=== PATIENT | female | born 2000 | race Caucasian/White ===

== ENCOUNTER 2019-06-08 13:14 | Emergency (ER) | payer OTHER ==
[~2019-06-08] VITALS: Ht 162.6 cm; Wt 93.4 kg
[2019-06-08] MEDS ORDERED: PRENATAL MULTI1 EAC3 (13:21)
[2019-06-08] MEDS ORDERED: M-NATAL PLUS T1 EACH (13:22)
== END 2019-06-08 18:44 | disposition home or self-care (01) ==
LOC: ER 13:14
DX: O26.892 Other specified pregnancy related conditions, second trimester (principal); R10.31 Right lower quadrant pain

== ENCOUNTER 2019-11-02 06:37 | Inpatient (IN) | payer OTHER ==
[~2019-11-02] VITALS: Ht 162.6 cm; Wt 109.8 kg
[~2019-11-02 06:37] MED LIST: M-NATAL PLUS T1 EACH; PRENATAL MULTI1 EAC3
[2019-11-02] MEDS ORDERED: PRENATAL TABLE1 EACH PO (12:02)
== END 2019-11-06 18:43 | disposition home or self-care (01) | DRG 788 ==
LOC: LDR 06:37 → O/R 20:29 → OB/GYN 11-03 17:14
PROVIDERS: ADMIT Obstetrics & Gynecology
PROC: 4A1HXFZ Monitoring of Products of Conception, Cardiac Rhythm, External Approach (ICD-10-PCS; 2019-11-02)
PROC: 3E033VJ Introduction of Other Hormone into Peripheral Vein, Percutaneous Approach (ICD-10-PCS; 2019-11-02)
PROC: 10D00Z1 Extraction of Products of Conception, Low, Open Approach (ICD-10-PCS; principal; 2019-11-02 19:00)
DX: O13.4 Gestational [pregnancy-induced] hypertension without significant proteinuria, complicating childbirth (principal); O61.0 Failed medical induction of labor; O62.1 Secondary uterine inertia; Z3A.39 39 weeks gestation of pregnancy; Z37.0 Single live birth

== ENCOUNTER 2021-05-14 22:39 | Inpatient (IN) | payer OTHER ==
[~2021-05-14] VITALS: Ht 162.6 cm; Wt 113.4 kg
[~2021-05-14 22:39] MED LIST changes: +PRENATAL TABLE1 EACH PO
== END 2021-05-19 13:41 | disposition home or self-care (01) | DRG 833 ==
LOC: OBS/DEL 22:39 → LDR 05-15 08:19
PROVIDERS: ADMIT Obstetrics & Gynecology; ATTEND Obstetrics & Gynecology
PROC: 4A1HXFZ Monitoring of Products of Conception, Cardiac Rhythm, External Approach (ICD-10-PCS; principal; 2021-05-15)
PROC: BY4FZZZ Ultrasonography of Third Trimester, Single Fetus (ICD-10-PCS; 2021-05-16)
DX: O13.3 Gestational [pregnancy-induced] hypertension without significant proteinuria, third trimester (principal); O14.93 Unspecified pre-eclampsia, third trimester; O36.8130 Decreased fetal movements, third trimester, not applicable or unspecified; Z3A.35 35 weeks gestation of pregnancy

== ENCOUNTER 2021-05-28 22:23 | Outpatient (CLI) | payer OTHER | END 2021-05-29 19:51 | disposition home or self-care (01) | LOC: OBS/DEL 22:23 | PROVIDERS: ATTEND Obstetrics & Gynecology | DX: O26.843 Uterine size-date discrepancy, third trimester (principal); O36.8130 Decreased fetal movements, third trimester, not applicable or unspecified; Z3A.37 37 weeks gestation of pregnancy ==

== ENCOUNTER 2021-05-31 15:43 | Inpatient (IN) | payer OTHER ==
[~2021-05-31] VITALS: Ht 162.6 cm; Wt 1.8 kg
== END 2021-06-03 14:00 | disposition home or self-care (01) | DRG 788 ==
LOC: LDR 15:43 → OB/GYN 21:31
PROVIDERS: Obstetrics & Gynecology; ADMIT Obstetrics & Gynecology; ATTEND Obstetrics & Gynecology
PROC: 4A1HXFZ Monitoring of Products of Conception, Cardiac Rhythm, External Approach (ICD-10-PCS; 2021-05-31)
PROC: 10D00Z1 Extraction of Products of Conception, Low, Open Approach (ICD-10-PCS; principal; 2021-05-31 18:00)
DX: O36.8330 Maternal care for abnormalities of the fetal heart rate or rhythm, third trimester, not applicable or unspecified (principal); O36.5930 Maternal care for other known or suspected poor fetal growth, third trimester, not applicable or unspecified; O13.4 Gestational [pregnancy-induced] hypertension without significant proteinuria, complicating childbirth; O34.211 Maternal care for low transverse scar from previous cesarean delivery; O99.824 Streptococcus B carrier state complicating childbirth; Z3A.37 37 weeks gestation of pregnancy; Z37.0 Single live birth

== ENCOUNTER 2023-04-12 11:02 | Emergency (ER) | payer OTHER ==
[~2023-04-12] VITALS: Ht 162.6 cm; Wt 106.1 kg
[2023-04-12 13:13] LABS: HEMATOCRIT 44.3 % (36.0-45.00); HEMOGLOBIN 14.3 g/dL (12.0-15.00); MEAN CELL VOLUME 83.9 fL (80.00-100.00); MEAN CORPUSCULAR HEMOGLOBIN 27.1 pg (27.00-32.0); MEAN CORPUSCULAR HGB CONC 32.3 g/dl (32.0-36.0); PLATELET COUNT 206 K/uL (150-450); RED BLOOD COUNT 5.28 M/uL (4.00-6.00); RED CELL DISTRIBUTION WIDTH 13.8 % (11.5-14.5)
[2023-04-12 13:51] LABS: CALCIUM 8.5 mg/dL (8.5-10.1); CREATININE SERUM 0.74 mg/dL (0.55-1.02); GFR 97.25
== END 2023-04-12 16:08 | disposition home or self-care (01) ==
LOC: ER 11:02
PROVIDERS: General Practice
DX: B34.8 Other viral infections of unspecified site (principal); Z20.822 Contact with and (suspected) exposure to COVID-19